=== PATIENT | female | born 2000 | race Caucasian/White ===

== ENCOUNTER 2022-03-28 00:45 | Emergency (ER) | payer OTHER, SELFPAY ==
--- NOTE | ~2022-03-28 | XR_ITS ---
XR foot RT min 3V 03/28/2022 01:28 INDICATION: Right foot pain PROCEDURE: 4 views right foot COMPARISON: No prior studies for comparison. FINDINGS: Fracture, dislocation or subluxation is not identified. The soft tissues appear within norm al limits. No foreign bodies are identified. IMPRESSION: 1: NO ACUTE BONE OR JOINT ABNORMALITY IDENTIFIED. Reviewed, dictated and finalized at location A.
[2022-03-28 00:47] VITALS: BP 138/80; PULSE 85; RESP 18; TEMP 36.6; O2SAT 100
--- NOTE | 2022-03-28 00:54 | ED.LOWEXIN ---
HPI - Extremity Injury (Lower) General Chief Complaint: Extremity Injury, Lower Stated Complaint: Right Toe Pain Time Seen by Provider: 03/28/22 00:50 History of Present Illness HPI Narrative: 21-year-old female presented to the emergency room for evaluation of pain. Patient states pain was unprovoked. Denies any injury or trauma. Patient states the pain is worse when ambulating and does not radiate. Patient also states about a week ago she stepped on an earring barefoot and was seen by provider and started on Cipro. Patient states that her mother says that she might have necrotizing fasciitis and needs to be seen immediately. Related Data Home Medications Medication Instructions Recorded Confirmed Accutane 1 tablet PO DAILY acne 03/28/22 03/28/22 Allergies Allergy/AdvReac Type Severity Reaction Status Date / Time sulfamethoxazole Allergy Rash Verified 03/28/22 01:06 [From Bactrim] trimethoprim [From Bactrim] Allergy Rash Verified 03/28/22 01:06 Review of Systems Review of Systems: CONSTITUTIONAL: Denies fever, chills, or sweats. EYES: Denies visual changes, redness, or discharge. ENT: Denies rhinorrhea, congestion, sore throat, or otalgia. CARDIOVASCULAR: Denies chest pain, palpitations, or edema. RESPIRATORY: Denies cough or dyspnea. GASTROINTESTINAL: Denies abdominal pain, nausea, vomiting, or diarrhea. GENITOURINARY: Denies dysuria or hematuria. SKIN: Denies rash or itching. MUSCULOSKELETAL: Reports toe pain NEUROLOGIC: Denies headache, numbness, dizziness, or weakness. PSYCHIATRIC: Denies anxiety or depression. Exam Narrative: GENERAL: Well-appearing, well-nourished, and in no acute distress. HEAD: Normocephalic, atraumatic. EYES: PERRLA and EOMI. CHEST: Clear to auscultation. No respiratory distress. No wheezes rales or rhonchi HEART: Regular rate and rhythm. No murmur heard. Normal peripheral pulses. EXTREMITIES: Right fourth toe: Tenderness to the MTP joint, no soft tissues swelling, no obvious bony abnormality, no ecchymosis, full range of motion, neurovascular is intact distally SKIN: Callus noted to right fourth toe NEURO: No focal deficits. Alert and oriented x3. PSYCH: Normal mood and affect. Course Vital Signs Vital signs: Vital Signs Temperature 36.6 C 06/12/22 00:47 Pulse Rate 85 03/28/22 00:47 Respiratory Rate 18 03/28/22 00:47 Blood Pressure 138/80 03/28/22 00:47 Pulse Oximetry 100 03/28/22 00:47 Oxygen Delivery Room Air 03/28/22 00:47 Temperature 36.6 C 03/28/22 00:47 Pulse Rate 85 03/28/22 00:47 Respiratory Rate 18 03/28/22 00:47 Blood Pressure 138/80 03/28/22 00:47 Pulse Oximetry 100 03/28/22 00:47 Oxygen Delivery Room Air 03/28/22 00:47 MDM - Extremity Injury (Lower) Imaging Data My impression: No acute bony abnormality Discharge Plan Discharge Clinical Impression: Pain in right toe(s) Patient Disposition: Home, Self-Care Condition: Stable Instructions: Antibiotic Form Additional Instructions: Take Tylenol and ibuprofen for pain. Prescriptions: No Action Accutane 1 tablet PO DAILY Follow-up/Referrals: PHYSICIAN,MATERIAL ATTENDANT [Primary Care Provider] - Time of Disposition: 01:31
--- NOTE | 2022-03-28 01:00 | PC.NURSE ---
Pt ambulatory with steady, even, unassisted gait to ED3, c/o right 4th toe pain. denies injury but reports pain x 4 hours. pain described as sharp. 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 No obvious redness, warmth, swelling, deformity noted.
[2022-03-28 02:01] VITALS: BP 133/66; PULSE 80; RESP 16; O2SAT 100
== END 2022-03-28 02:02 | disposition home or self-care (01) ==
PROVIDERS: Emergency Provider Nurse Practitioner Family
DX: M79.674 Pain in right toe(s) (principal)
CPT/HCPCS: 73630; 99283